=== PATIENT | male | born 1935 | race Caucasian/White ===

== ENCOUNTER → 2017-02-02 | Outpatient (CLI) | payer MEDICARE, OTHER ==
[~2017-02-02] MED LIST: IOHEXOL 240 MG/ML 50ML VIAL. ONE; IOHEXOL 300 MG/ML 75 ML VIAL. IV ONE
--- NOTE | 2017-02-02 12:27 | RAD ---
INDICATION: LLQ ABDOMINAL PAIN TIMES 2 WEEKS COMPARISON: None. TECHNIQUE: Axial CT images were obtained through the abdomen and pelvis with intravenous contrast. FINDINGS: May be a small hiatal hernia versus mild distention distal esophagus. Coronary artery calcific atherosclerosis partially seen. Calcific atherosclerosis throughout the vasculature without abdominal aortic aneurysm. Liver appears mildly low attenuation. No peripancreatic edema. Spleen is unremarkable. No left-sided hydronephrosis. Low density lesion right kidney measuring up to approximately 2.4 cm. No right-sided hydronephrosis. Urinary bladder is partially distended. Prostate has a calcification within. No periappendiceal inflammation. No dilated loops of bowel to suggest obstruction. Small fat-containing umbilical hernia. Sclerotic focus left side of the sacrum measuring up to about 15 mm. Degenerative changes spine. IMPRESSION: No evidence of bowel obstruction or appendicitis. Low density right renal lesion. Could be secondary to causes such as a cyst but cannot exclude complex or solid component on this exam. Further workup options include a focused ultrasound or MRI. Liver appears low attenuation. Nonspecific but can be seen with fatty infiltration. Calcific atherosclerosis. Sclerotic focus left sacrum. Most commonly from [place] unless the patient has history of neoplasm. PQRS Compliance Statement: One or more of the following individualized dose reduction techniques were utilized for this examination: 1. Automated exposure control 2. Adjustment of the mA and/or kV according to patient size 3. Use of iterative reconstruction technique
== END | disposition home or self-care (01) ==
LOC: CT 08:40
PROVIDERS: ATTEND Family Medicine
DX: M53.3 Sacrococcygeal disorders, not elsewhere classified (principal); N28.9 Disorder of kidney and ureter, unspecified; K76.0 Fatty (change of) liver, not elsewhere classified; I25.10 Atherosclerotic heart disease of native coronary artery without angina pectoris; N32.89 Other specified disorders of bladder; K42.9 Umbilical hernia without obstruction or gangrene
CPT/HCPCS: 74177; Q9966; Q9967